=== PATIENT | female | born 1950 | race Caucasian/White ===

== ENCOUNTER → 2017-06-22 | Outpatient (CLI) | payer MEDICARE ==
--- NOTE | 2017-06-22 11:55 | RAD ---
Fluoroscopic upper GI series. Comparison: None. Findings/technique Total fluoroscopy time: 2.0 minutes Total DAP: 1416 uGy*m^2 Patient self-administered positive by mouth oral contrast with the initial swallow demonstrated a rapid transit with the primary stripping wave through the esophagus into the stomach. There is mild mucosal irregularity of the distal esophagus which persists on multiple swallows without high-grade stricture or focal intraluminal filling defect. There is a small hiatal hernia. Mild gastroesophageal reflux was observed. The duodenal sweep is normal in configuration. Impression: 1. Distal esophageal mucosal irregularity without evidence of high-grade stricture or focal intraluminal defect. Findings may represent reflux esophagitis, Chavez's cannot be excluded. Endoscopy is recommended for further evaluation. 2. Small hiatal hernia with gastroesophageal reflux.
== END | disposition home or self-care (01) ==
LOC: DXRAD 07:36
PROVIDERS: ATTEND Family Medicine
DX: K21.9 Gastro-esophageal reflux disease without esophagitis (principal); K44.9 Diaphragmatic hernia without obstruction or gangrene
CPT/HCPCS: 74240

== ENCOUNTER → 2017-11-02 | Outpatient (CLI) | payer MEDICARE ==
--- NOTE | 2017-11-02 14:04 | RAD ---
Abdominal ultrasound without comparison for right upper flank pain, vomiting for 1 year. TECHNIQUE: Real-time grayscale and color and Doppler evaluation of the abdominal organs is performed. FINDINGS: The liver is notable for diffuse fatty infiltration, without hepatomegaly. No focal parenchymal abdomen disease. No intra or extrahepatic biliary ductal dilatation. The common bile duct measures 2 mm in thickness. Gallbladder is normal in appearance, and no sonographic Rhodes sign was elicited. Visualized portions of the pancreas are normal. Distal pancreatic tail was not well seen. The aorta is nonaneurysmal and the IVC is patent. The right kidney measures 9.7 x 5.6 x 4.0 cm and the left measures 11.2 x 5.0 x 5.2 cm. There is no hydronephrosis or focal parenchymal abnormality involving either kidney. There is increased color Doppler flow to both kidneys, with symmetry suggesting a technical artifact due to elevated gain settings. Spleen is normal in appearance. No free or loculated fluid collections are identified. IMPRESSION: 1. No sonographic evidence of acute cholecystitis. 2. Hepatic steatosis without hepatomegaly. Electronically signed by: Dariel Jasso MD (11/02/2017 2:00 PM) [id number]
== END | disposition home or self-care (01) ==
LOC: US 10:32
PROVIDERS: ATTEND Physician Assistant
DX: K76.0 Fatty (change of) liver, not elsewhere classified (principal)
CPT/HCPCS: 76700

== ENCOUNTER → 2018-12-20 | Outpatient (CLI) | payer MEDICARE ==
--- NOTE | 2018-12-20 15:38 | RAD ---
DATE: 12/20/2018. EXAM: Bilateral screening mammogram HISTORY: Bilateral screening mammogram. COMPARISON: Previous mammogram from 2015. This study was interpreted with the benefit of Computerized Aided Detection (CAD). FINDINGS: Breast Density: SCATTERED The breast parenchyma shows scattered fibroglandular densities. Breast parenchyma level B. The skin and nipple are within normal limits. No suspicious calcifications, spiculated mass or area of architectural distortion. Dystrophic calcifications in the right breast a benign morphology. IMPRESSION: No mammographic evidence of malignancy. BI-RADS CATEGORY: 2 BENIGN FINDING(S) RECOMMENDED FOLLOW-UP: 12M 12 MONTH FOLLOW-UP PQRS compliance statement: Patient information was entered into a reminder system with a target due date for the next mammogram. Mammography is a sensitive method for finding small breast cancers, but it does not detect them all and is not a substitute for careful clinical examination. A negative mammogram does not negate a clinically suspicious finding and should not result in delay in biopsying a clinically suspicious abnormality. "Our facility is accredited by the [employer] Mammography [employer]."
== END | disposition home or self-care (01) ==
LOC: MAMMO 14:12
PROVIDERS: ATTEND Family Medicine
DX: Z12.31 Encounter for screening mammogram for malignant neoplasm of breast (principal); N64.89 Other specified disorders of breast
CPT/HCPCS: 77067

== ENCOUNTER → 2018-12-29 | Outpatient (CLI) | payer MEDICARE ==
[2018-12-29] MEDS: IOHEXOL 240 MG/ML 50ML VIAL. PO ONE (14:40)
--- NOTE | 2018-12-29 15:16 | RAD ---
Examination: CT ABD PEL W/ORAL CONTRST ONLY History: Right upper quadrant pain, back pain Comparison/Correlation: None Findings: Axial images of the abdomen and pelvis were obtained following oral contrast administration only. The patient reportedly refused IV contrast. Sagittal and coronal reformatted images were provided. Visualized lung bases are clear. Minimal left costophrenic sulcus atelectasis is present. Moderate-sized hiatal hernia is present containing the oral contrast. This may represent reflux of contrast. Gastrohepatic ligament lymph node measuring 0.9 cm diameter is present. No enlarged abdominal or pelvic lymph nodes. Mild fatty infiltration of liver is present spleen is unremarkable. Gallbladder fossa is normal. Adrenal glands are unremarkable. No radiopaque no hydronephrosis or hydroureter. Diverticulosis of the colon is present. No extraluminal gas. Small umbilical hernia contains omental fat. Urinary bladder is unremarkable. Uterus is grossly unremarkable. Significant L5/S1 disc space narrowing is present. Impression: Moderate-sized hiatal hernia. Gastroesophageal reflux may be present. No radiopaque collecting system calculi. Diverticulosis. PQRS Compliance Statement: One or more of the following individualized dose reduction techniques were utilized for this examination: 1. Automated exposure control 2. Adjustment of the mA and/or kV according to patient size 3. Use of iterative reconstruction technique Electronically signed by: Rafael Dobbs MD (12/29/2018 3:12 PM) [id number]
== END | disposition home or self-care (01) ==
LOC: CT 13:06
PROVIDERS: ATTEND Physician Assistant
DX: Z01.419 Encounter for gynecological examination (general) (routine) without abnormal findings (principal); K44.9 Diaphragmatic hernia without obstruction or gangrene; K21.9 Gastro-esophageal reflux disease without esophagitis; K57.30 Diverticulosis of large intestine without perforation or abscess without bleeding; M48.07 Spinal stenosis, lumbosacral region; K42.9 Umbilical hernia without obstruction or gangrene; K76.0 Fatty (change of) liver, not elsewhere classified; R59.0 Localized enlarged lymph nodes; J98.11 Atelectasis
CPT/HCPCS: 74176; Q9966

== ENCOUNTER → 2019-02-28 | Outpatient (CLI) | payer MEDICARE ==
--- NOTE | 2019-02-28 14:50 | RAD ---
EXAM: Head CT without contrast. HISTORY: Vision changes. TECHNIQUE: Computed tomographic images of the head were obtained without contrast. *One or more of the following individualized dose reduction techniques were utilized for this examination: 1. Automated exposure control. 2. Adjustment of the mA and/or kV according to patient size. 3. Use of iterative reconstruction technique. COMPARISON: None. FINDINGS: There is no acute or subacute extra-axial or intraparenchymal hemorrhage. There is no mass effect or midline shift. There is no hydrocephalus. The wbyq-[id number]-prrvf matter differential pattern is intact. There is evidence of left lens surgery. The paranasal sinuses mastoid air cells are unremarkable. There is no suspicious calvarial lesion. IMPRESSION: No acute intracranial findings. Note is made that MRI is more sensitive for acute infarction. Electronically signed by: Sharon Vásquez MD (02/28/2019 2:48 PM) [id number]
== END | disposition home or self-care (01) ==
LOC: CT 13:32
PROVIDERS: ATTEND Ophthalmology
DX: H53.8 Other visual disturbances (principal)
CPT/HCPCS: 70450

== ENCOUNTER → 2019-11-21 | Outpatient (CLI) | payer MEDICARE ==
--- NOTE | 2019-11-21 15:50 | RAD ---
EXAM: Bilateral lower extremity arterial Doppler sonogram. HISTORY: Claudication. TECHNIQUE: Cornell scale and color Doppler sonographic imaging of the lower extremity arteries with spectral waveform analysis was performed. COMPARISON: None. FINDINGS: There are elevated peak systolic velocities within the bilateral common femoral arteries, measuring 175 cm/s on the right and 178 cm/s on the left. There are elevated peak systolic velocities within the bilateral proximal superficial femoral arteries, measuring 176 cm/s on the right and 164 cm/s on the left. There are elevated peak systolic velocities within the mid and distal left superficial femoral artery, measuring 136 cm/s and 154 cm/s. There are elevated peak systolic velocities within the right proximal and distal posterior tibial artery, measuring 158 cm/s and 177 cm/s. There are elevated peak systolic velocities within the bilateral dorsalis pedis arteries, measuring 135 cm/s and 186 cm/s. No occlusion is seen. IMPRESSION: Elevated peak systolic velocities within the bilateral common femoral arteries, bilateral proximal superficial femoral arteries, left mid and distal superficial femoral artery, right proximal and distal posterior tibial artery and bilateral dorsalis pedis arteries, suggesting hemodynamically significant stenosis. No occlusion is seen. Electronically signed by: Sharon Vásquez MD (11/21/2019 3:46 PM) [facility]
== END | disposition home or self-care (01) ==
LOC: US 14:50
PROVIDERS: ATTEND Family Medicine
DX: I73.9 Peripheral vascular disease, unspecified (principal)
CPT/HCPCS: 93925

== ENCOUNTER → 2019-12-21 | Outpatient (CLI) | payer MEDICARE ==
[~2019-12-21] MED LIST: ALBU2.5V8 INH; ASPI81TA59 PO; INSU300I3 SQ; OMEP20CA16 PO
== END | disposition home or self-care (01) ==
LOC: LAB 12:55
PROVIDERS: ATTEND Nurse Anesthetist, Certified Registered
DX: Z01.818 Encounter for other preprocedural examination (principal); Z11.59 Encounter for screening for other viral diseases; H26.9 Unspecified cataract
CPT/HCPCS: C9803; U0003; 36415

== ENCOUNTER → 2019-12-25 | Day surgery (SDC) | payer MEDICARE ==
[~2019-12-25] MED LIST changes: +BALANCED SALT IRRIG OPHTH SOLN 15 ML BOTTLE. IRR ONE; +CATARACT OPHTH GEL 0.5 ML SYRINGE. OD ONE; +CHONDROIT-SOD-HYALURONATE KIT. OD ONE; +CHONDROIT-SOD-HYALURONATE KIT. OD SCH; +EPINEPHrine AMPULE 0.5 MG in BALANCED SALT IRRIG SOLN PLUS 500 ML IO ONE; +ERYTHROMYCIN 0.5% OPHTH OINTMENT 1GM TUBE. OD ONE; +HYALURONIDASE 75UNITS in LIDOCAINE 2% PF OPHTH 10 ML SYRINGE. OD ONE; +IPRATRPIUM/ALBUTEROL 0.5/2.5MG 3 ML NEBU. NEB PRN; +IV RINGERS SOLUTION,LACTATED 1,000 ML IV SCH; +KETOROLAC TROMETHAMINE 0.5% OPHTH SOLUTION BOTTLE. OD SCH; +KETOROLAC TROMETHAMINE 0.5% OPHTH SOLUTION BOTTLE. ONE; +LIDO/EPI IN BSS OPHTH 4 ML SYRINGE OD ONE; +MIDAZOLAM HCL PF 2 MG/2 ML VIAL. IV ONE; +MOXIFLOXACIN 0.5% OPHTH SOLUTION 3ML BOTTLE. OD SCH; +ONDANSETRON PF 4 MG/2 ML VIAL. IV PRN; +POVIDONE-IODINE 5% OPHTH SOLUTION 30ML BOTTLE. OD ONE; +TETRACAINE 0.5% OPHTH SOLUTION 4ML BOTTLE. OD ONE; +TETRACAINE 0.5% OPHTH SOLUTION 4ML BOTTLE. OU ONE; +diphenhydrAMINE 50 MG/ML VIAL IVP ONE; +prednisoLONE ACETATE 1% OPHTH SUSPENSION 5ML BOTTLE. OD SCH; +prednisoLONE ACETATE 1% OPHTH SUSPENSION 5ML BOTTLE. ONE
[2019-12-25] MEDS: MOXIFLOXACIN 0.5% OPHTH SOLUTION 3ML BOTTLE. OD SCH ×3 (08:09→08:21)
--- NOTE | 2019-12-25 09:02 | PDOC4 ---
Phaco IOL/Mature/Vision Blue Date of Procedure: Dec 25, 2019 Preoperative Diagnosis: Mature Cataract, right Eye Postoperative Diagnosis: Mature Cataract, right Eye Anesthesia: Local (Block) with monitored anesthesia care Surgeon: Glen Whitfield D.O. Procedure: 1. Phacoemulsification with Intraocular Lens Implant 2. Vision Blue Staining of Anterior Capsule Findings: Mature cataract Indications: Worsening vision interfering with patient's lifestyle Narrative: After discussing the risks, complications and alternatives, including but not limited to loss of vision, infection, bleeding, swelling, anesthetic reaction, capsule rupture with vitreous loss, etc., the patient was given a peribulbar block under mild IV sedation and cardiac monitoring. Pressure was applied to the eye for approximately 10 minutes. The patient was transferred to the main operating room and was prepped and draped in the usual sterile fashion and positioned under the microscope. A lid speculum was placed. A side port incision was made. Epi-shugarcaine was injected. Air was injected into the anterior chamber followed by Vision Blue. After 30 seconds, a temporal 2.4 mm incision was made and the Vision Blue was aspirated from the eye. A continuous tear capsulorrhexis was performed, then hydrodissection was accomplished with balanced salt solution. The phacoemulsification needle was placed in the eye and the nucleus was emulsified. The remaining cortical material was removed with the irrigation and aspiration apparatus. The capsule was polished as needed. The posterior capsule was noted to be clean and intact. Viscoelastic was injected into the eye inflating the capsular bag. An intraocular lens was injected to the eye, unfolding as desired and was positioned in the capsular bag. The viscoelastic was aspirated from the eye. The wound edges were hydrated with balanced salt solution and there were no leaks. Viscoelastic was injected over the limbal incisions. Antibiotic and steroid were placed on the eye. The lid speculum was removed, the eye patched shut and a Resendiz shield applied. There were no complications and the patient was taken to PACU in good condition. GLEN WHITFIELD DO Dec 25, 2019 09:02
[2019-12-25 09:25] VITALS: BP 131/56
== END ==
LOC: SURG 06:27
PROVIDERS: ATTEND Ophthalmology
DX: H25.11 Age-related nuclear cataract, right eye (principal)
CPT/HCPCS: 66982; J0171; V2788

== ENCOUNTER → 2021-09-08 | Outpatient (CLI) | payer MEDICARE ==
[2019-12-25 09:25] VITALS: BP 131/56
[~2021-09-08] MED LIST changes: -BALANCED SALT IRRIG OPHTH SOLN 15 ML BOTTLE. IRR ONE; -CATARACT OPHTH GEL 0.5 ML SYRINGE. OD ONE; -CHONDROIT-SOD-HYALURONATE KIT. OD ONE; -CHONDROIT-SOD-HYALURONATE KIT. OD SCH; -EPINEPHrine AMPULE 0.5 MG in BALANCED SALT IRRIG SOLN PLUS 500 ML IO ONE; -ERYTHROMYCIN 0.5% OPHTH OINTMENT 1GM TUBE. OD ONE; -HYALURONIDASE 75UNITS in LIDOCAINE 2% PF OPHTH 10 ML SYRINGE. OD ONE; -IPRATRPIUM/ALBUTEROL 0.5/2.5MG 3 ML NEBU. NEB PRN; -IV RINGERS SOLUTION,LACTATED 1,000 ML IV SCH; -KETOROLAC TROMETHAMINE 0.5% OPHTH SOLUTION BOTTLE. OD SCH; -KETOROLAC TROMETHAMINE 0.5% OPHTH SOLUTION BOTTLE. ONE; -LIDO/EPI IN BSS OPHTH 4 ML SYRINGE OD ONE; -MIDAZOLAM HCL PF 2 MG/2 ML VIAL. IV ONE; -MOXIFLOXACIN 0.5% OPHTH SOLUTION 3ML BOTTLE. OD SCH; -ONDANSETRON PF 4 MG/2 ML VIAL. IV PRN; -POVIDONE-IODINE 5% OPHTH SOLUTION 30ML BOTTLE. OD ONE; -TETRACAINE 0.5% OPHTH SOLUTION 4ML BOTTLE. OD ONE; -TETRACAINE 0.5% OPHTH SOLUTION 4ML BOTTLE. OU ONE; -diphenhydrAMINE 50 MG/ML VIAL IVP ONE; -prednisoLONE ACETATE 1% OPHTH SUSPENSION 5ML BOTTLE. OD SCH; -prednisoLONE ACETATE 1% OPHTH SUSPENSION 5ML BOTTLE. ONE
--- NOTE | 2021-09-08 15:49 | RAD ---
Digital Mammogram Bilateral History: Routine screening Technique: 2-D digital CC and MLO views were obtained. CAD - computer aided detection was utilize d. Comparison: Mammograms from 12/20/2018, 10/24/2014.. Findings: Breast Tissue Density B : There are scattered areas of fibroglandular density There are no suspicious masses, malignant appearing calcifications, or areas of architectural distort ion. Impression: No evidence of malignancy. Assessment: BI-RADS Category 1: Negative. Recommendation: Routine screening mammograms The patient will receive a letter with the results in the mail. Patient information will be entered i nto the mammography reminder system with a target recall date for the next mammogram. A reminder asif er will be generated. Electronically signed by: Ruby Miller MD (09/08/2021 3:47 PM) [id number]
--- NOTE | 2021-09-08 16:55 | RAD ---
DXA BONE DENSITY AXIAL History: Postmenopausal Comparison: None. TECHNIQUE: Dual energy x-ray absorptiometry of the lumbar spine and right hip was performed. T-score of average bone mineral density based was calculated based on standard deviations above or below the expected young adult normal value. Diagnostic definitions were established by the [employer] z[employer]. FINDINGS: The average bone mineral density associated with L1-L4 is 0.998 g/cm^2, corresponding with a T-score of -1.5. The average total bone mineral density associated with right hip is 0.750 g/cm^2, corresponding with a T-score of -1.7. Isolated right femoral neck T score -3.0. Refer to the worksheets for full detail. IMPRESSION: 1. Osteoporosis. According to isolated right femoral neck T score. Average bone mineral density yiel ds a T-score of -2.5 or less. Fracture risk is high. Electronically signed by: Villa Canales DO (09/08/2021 4:53 PM) [id number]
== END ==
LOC: MAMMO 13:38
PROVIDERS: ATTEND Family Medicine
DX: Z12.31 Encounter for screening mammogram for malignant neoplasm of breast (principal); M81.8 Other osteoporosis without current pathological fracture
CPT/HCPCS: 77067; 77080